=== PATIENT | female | born 1935 | race Caucasian/White ===

== ENCOUNTER → 2016-08-03 | Outpatient (CLI) | payer MEDICARE ==
[~2016-08-03] MED LIST: ASCA500 PO; ATOR-54 PO; ENOX30IN4 SQ; FRRS300 PO; MULTTAB58 PO; OXYC-57 PO
--- NOTE | 2016-08-03 12:39 | MAMMOGRAPHY REPORT ---
UNILATERAL RIGHT DIGITAL DIAGNOSTIC MAMMOGRAM TOMOSYNTHESIS: 08/03/2016 CLINICAL HISTORY: Short interval follow-up of a probably benign grouping of microcalcifications in t he upper outer middle one third of the right breast. TECHNIQUE: Right CC and MLO 2-D digital and tomosynthesis images, spot magnification right CC and ML views were obtained. COMPARISON: Comparison is made to exams dated: 02/04/2016 mammogram, 01/26/2016 mammogram, 01/22/2015 m ammogram, 01/20/2014 mammogram, 01/18/2013 mammogram, and 01/18/2012 mammogram - [facility]. BREAST COMPOSITION: There are scattered areas of fibroglandular density in the right breast. FINDINGS: There is stable focal asymmetry in the 12:00 posterior right breast, a stable circumscribe d 9 mm mass in the 6:00 anterior subareolar right breast and other stable smaller masses scattered i n the right breast. There are a few stable benign coarse calcifications. There is a cluster of elio rocalcifications with vague associated 3 mm nodularity in the upper outer middle one third of the ri ght breast. When evaluating the spot magnification views, these microcavitation are unchanged in nu mber and distribution compared to the 02/04/2016 mammograms. In retrospect faint microcalcification s were seen in that location dating back to 2013 although they are increasingly conspicuous. No new suspicious mass, architectural distortion or cluster of microcalcifications is seen. These microca lcifications could represent fibrocystic change or a degenerating fibroadenoma however longer stabil ity is needed. Another six-month follow-up exam including repeat spot magnification views is recomm ended. Annual bilateral mammography will be due at that time. IMPRESSION: ACR-BI-RADS CATEGORY 3: PROBABLY BENIGN Another short interval follow-up right diagnostic mammogram including repeat spot magnification view s is recommended to ensure longer stability of a small 3 mm cluster of microcalcifications in the ri ght upper outer quadrant. Annual bilateral mammography is also due at that time. These results and recommendations were discussed with the patient at the time of the exam. Approximately 10% of breast cancers are not detected with mammography. A negative mammographic repor t should not delay biopsy if a clinically suggestive mass is present. Tracie Rocha M.D. 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
== END | disposition home or self-care (01) ==
LOC: C.MAMM 10:35
PROVIDERS: ATTEND Internal Medicine
DX: R92.0 Mammographic microcalcification found on diagnostic imaging of breast (principal)

== ENCOUNTER → 2016-12-09 | Outpatient (CLI) | payer MEDICARE ==
[2016-12-09 11:32] LABS: BLOOD UREA NITROGEN 11 mg/dl (7-18); BUN/CREATININE RATIO 12.7 (10-20); CARBON DIOXIDE 28 mmol/L (21-32); CHLORIDE 108 mmol/L (98-107); CHOLESTEROL 187 mg/dl (0-200); CREATININE 0.89 mg/dl (0.60-1.20); GLUCOSE 92 mg/dl (70-99); POTASSIUM 4.4 mmol/L (3.5-5.1); SODIUM 141 mmol/L (136-145)
[2016-12-09 11:42] LABS: CHOLESTEROL/HDL RATIO 3.7; HDL CHOLESTEROL 51 mg/dl; LDL CHOLESTEROL CALCULATED 100 mg/dl; TRIGLYCERIDES 181 mg/dl (0-150); VERY LOW DENSITY LIPOPROT CALC 36 mg/dl
== END | disposition home or self-care (01) ==
LOC: C.LAB 10:01
PROVIDERS: ATTEND Physician Assistant
DX: E78.5 Hyperlipidemia, unspecified (principal); M15.9 Polyosteoarthritis, unspecified

== ENCOUNTER → 2016-12-21 | Outpatient (CLI) | payer MEDICARE | END | disposition home or self-care (01) | LOC: C.MAMM 13:29 | PROVIDERS: ATTEND Physician Assistant | DX: Z13.820 Encounter for screening for osteoporosis (principal); M85.852 Other specified disorders of bone density and structure, left thigh; Z87.81 Personal history of (healed) traumatic fracture ==

== ENCOUNTER → 2018-01-08 | Outpatient (CLI) | payer MEDICARE ==
[2018-01-08 13:15] LABS: BLOOD UREA NITROGEN 10 mg/dl (7-18); CALCIUM 8.9 mg/dl (8.5-10.1); CARBON DIOXIDE 26 mmol/L (21-32); CHOLESTEROL 181 mg/dl (0-200); CREATININE 0.81 mg/dl (0.60-1.20); GLUCOSE 99 mg/dl (70-99); LDL CHOLESTEROL CALCULATED 94 mg/dl; POTASSIUM 4.2 mmol/L (3.5-5.1); SODIUM 138 mmol/L (136-145)
== END | disposition home or self-care (01) ==
LOC: C.LAB 10:30
PROVIDERS: ATTEND Physician Assistant
DX: E78.00 Pure hypercholesterolemia, unspecified (principal); M85.00 Fibrous dysplasia (monostotic), unspecified site